=== PATIENT | male | born 1955 | race Caucasian/White ===

== ENCOUNTER 2022-03-01 14:21 | Outpatient (CLI) | payer OTHER, SELFPAY ==
[2022-03-01 13:51] LABS: Albumin* 4.7 g/dL (3.3-5.0); Chloride* 103 mmol/L (96-114)
[2022-03-01 13:52] LABS: Potassium* 4.1 mmol/L (3.6-5.1); Sodium* 139 mmol/L (135-149)
[2022-03-01 13:54] LABS: Aspartate Amino Transferase* 44 U/L (12-35); Bilirubin Total* 0.9 mg/dL (0.1-1.5); Blood Urea Nitrogen* 14 mg/dL (7-30); Carbon Dioxide* 26 mmol/L (20-32); Cholesterol* 172 mg/dL (90-199); Creatinine* 0.9 mg/dL (0.5-1.5); Estimated Glomerular Filt Rate 95 ml/min; Total Protein* 7.8 g/dL (6.0-8.3)
[2022-03-01 13:55] LABS: Alanine Aminotransferase* 47 U/L (4-50); Alkaline Phosphatase* 75 U/L (40-150); Calcium* 9.6 mg/dL (8.4-10.6); Glucose* 112 mg/dL (60-115); HDL Cholesterol* 45 mg/dL (>=40); LDL Cholesterol Calculated 77 mg/dL (<100); Triglycerides* 248 mg/dL (40-149)
[2022-03-01 14:25] LABS: PSA Screen* 0.22 ng/mL (0.10-4.00)
[2022-03-03 17:40] LABS: Sex Hormone Binding Globulin 29 nmol/L (19-76); Testosterone, Adult Male 157 ng/dL (300-720); Testosterone, Free Calculation 29 pg/mL (47-244); Testosterone, Percentage Free 1.8 % (1.6-2.9)
== END 2022-03-01 14:22 | disposition home or self-care (01) ==
PROVIDERS: PCP Family Medicine; Visit Provider Family Medicine
DX: D69.6 Thrombocytopenia, unspecified (principal); E03.9 Hypothyroidism, unspecified; I10 Essential (primary) hypertension; R79.89 Other specified abnormal findings of blood chemistry
CPT/HCPCS: 80053; 80061; 84153; 84270; 84402; 84403; 84443

== ENCOUNTER 2022-12-30 09:26 | Outpatient (CLI) | payer MEDICARE, SELFPAY | END 2022-12-30 09:27 | disposition home or self-care (01) | LOC: NFLDREF 01-02 12:47 | PROVIDERS: PCP Family Medicine; Referring Provider Family Medicine; Visit Provider Family Medicine | DX: D69.6 Thrombocytopenia, unspecified (principal) | CPT/HCPCS: 80048 ==

== ENCOUNTER 2023-07-20 09:03 | Outpatient (CLI) | payer MEDICARE, SELFPAY | END 2023-07-20 09:04 | disposition home or self-care (01) | LOC: LKVREF 09:20 | PROVIDERS: PCP Family Medicine; Visit Provider Family Medicine | DX: R79.89 Other specified abnormal findings of blood chemistry (principal); I10 Essential (primary) hypertension; E03.9 Hypothyroidism, unspecified | CPT/HCPCS: 80053; 84270; 84402; 84403; 84443; G0103 ==

== ENCOUNTER 2023-10-17 12:58 | Outpatient (CLI) | payer MEDICARE, SELFPAY | END 2023-10-17 12:59 | disposition home or self-care (01) | LOC: NFLDREF 10-19 10:55 | PROVIDERS: PCP Family Medicine; Referring Provider Family Medicine; Visit Provider Family Medicine | DX: E03.9 Hypothyroidism, unspecified (principal); S40.862A Insect bite (nonvenomous) of left upper arm, initial encounter | CPT/HCPCS: 84443; 86618 ==

== ENCOUNTER 2024-07-23 08:32 | Outpatient (CLI) | payer MEDICARE, SELFPAY | END 2024-07-23 08:33 | disposition home or self-care (01) | PROVIDERS: PCP Family Medicine; Visit Provider Family Medicine | DX: R73.9 Hyperglycemia, unspecified (principal); E03.9 Hypothyroidism, unspecified; I10 Essential (primary) hypertension; E29.1 Testicular hypofunction; Z12.5 Encounter for screening for malignant neoplasm of prostate | CPT/HCPCS: 80053; 80061; 84270; 84402; 84403; 84443; G0103 ==

== ENCOUNTER 2024-10-22 08:30 | Outpatient (CLI) | payer MEDICARE, SELFPAY | END 2024-10-22 08:31 | disposition home or self-care (01) | LOC: NFLDREF 10-27 04:11 | PROVIDERS: PCP Family Medicine; Referring Provider Family Medicine; Visit Provider Family Medicine | DX: E03.9 Hypothyroidism, unspecified (principal); I10 Essential (primary) hypertension; R53.83 Other fatigue | CPT/HCPCS: 80048; 84443 ==